=== PATIENT | female | born 1975 | race Caucasian/White ===

== ENCOUNTER 2017-11-23 22:36 | Observation (INO) ==
[2017-11-23 23:02] LABS: Activated Partial Thrombo Time 23.7 seconds (23.6-34.0); INR 0.97 (0.9-1.1)
[2017-11-23 23:15] LABS: Albumin Level 2.7 gm/dL (3.4-5.0); Albumin/Globulin Ratio 0.8 (1.1-1.8); Anion Gap 12.7 mEq/L (5-15); Bilirubin,Total 0.2 mg/dL (0.2-1.0); Globulin 3.6 gm/dl (1.3-3.2); Potassium 3.7 mmoL/L (3.5-5.1); Thyroid Stimulating Hormone 2.76 uIU/ml (0.358-3.740); Total Protein,Serum 6.3 gm/dL (6.4-8.2)
[2017-11-23 23:17] LABS: Basophils # 0.1 K/mm3 (0-0.2); Basophils % 0.3 % (0.1-2.0); Eosinophils # 0.1 K/mm3 (0.0-0.4); Eosinophils % 0.7 % (0.1-12.0); Lymphocytes # 2.8 K/mm3 (0.7-4.5); Lymphocytes % 17.7 K/mm3 (10-50); Mean Corpuscular HGB Conc 30.4 g/dL (31.8-35.4); Mean Corpuscular Hemoglobin 25.1 pg (27.0-31.2); Mean Corpuscular Volume 82.7 fl (81-99); Mean Platelet Volume 8.4 fl (7.4-10.4); Monocytes # 0.5 K/mm3 (0.1-1.0); Monocytes % 3.3 % (1.7-9.3); Neutrophils # 12.2 K/mm3 (1.8-7.8); Platelet Count 401 K/mm3 (142-424); Red Blood Count 3.08 M/mm3 (4.20-5.40); Red Cell Distribution Width 14.8 % (11.5-17.5); White Blood Count 15.6 K/mm3 (4.8-10.8)
[2017-11-23 23:19] LABS: Hematocrit 25.5 % (37.0-47.0); Hemoglobin 7.7 g/dL (12.2-16.2)
[2017-11-23 23:20] LABS: Creatine Kinase 28 U/L (26-192)
--- NOTE | 2017-11-23 23:25 | Emergency Department Note ---
ED Disposition Clinical Impression: Vaginal bleeding Anemia Qualifiers: Anemia type: other cause Other causes of anemia: other cause, not classified Qualified Code(s): D64.89 - Other specified anemias Disposition: Admitted As Inpatient Condition on Discharge: Serious Time of Disposition: 23:40 - Critical Care Critical Care Time: Yes Attestation: On 11/23/17, the high probability of a clinically significant, sudden or life threatening deterioration of the following system(s) required my full and direct attention, intervention and personal management. The time I documented below is in addition to time spent performing reported procedures but includes the following listed in this critical care notation. Total Critical Care Time: 90 Vital system(s) involved:: Circulatory Failure My critical care processes included: Assessment & monitoring of V/S, Initial and Re-exams, Data Review/Interpretation, Coordinating Care, Medication Orders and management, Documentation Medical Decision Making - Medical Records Medical records reviewed: Yes: I reviewed the patient's medical records. - Mahendra Inquiry Pt receiving controlled substance: No Vital Signs: 11/23/17 22:37 11/24/17 00:37 11/24/17 00:42 Temperature 99.2 F 98.8 F Temperature Source Oral Oral Pulse Rate 96 H Pulse Rate [Right Radial] 127 H Respiratory Rate 18 14 Blood Pressure 109/63 Blood Pressure [Right Arm] 112/59 Blood Pressure Mean [Right Arm] 76 Blood Pressure Source Automatic Cuff Blood Pressure Source [Right Arm] Automatic Cuff Blood Pressure Position Sitting Blood Pressure Position [Right Arm] Sitting 02 Sat by Pulse Oximetry 98 Oxygen Delivery Method Room Air Room Air Room Air - Lab Data Lab results reviewed: Yes: I reviewed the patient's lab results. Lab Results 11/23/17 22:45: PT 10.0, INR 0.97, APTT 23.7 11/23/17 22:45: Sodium 140, Potassium 3.7, Chloride 107, Carbon Dioxide 24, Anion Gap 12.7, BUN 11, Creatinine 0.93, Estimated Creat Clear -108 L, Estimated GFR 66, Est GFR ( Amer) 80, Glucose 255 H, Calcium 8.0 L, Total Bilirubin 0.2, AST 4 L, ALT 19, Alkaline Phosphatase 81, Total Protein 6.3 L, Albumin 2.7 L, Globulin 3.6 H, Albumin/Globulin Ratio 0.8 L, Amylase 26, Lipase 76, TSH 2.76 11/23/17 22:45: Hemoglobin A1c 6.2 11/23/17 22:45: Serum HCG, Qual Negative 11/23/17 22:45: Total Creatine Kinase 28, CK-MB (CK-2) < 0.5, CK-MB (CK-2) Rel Index 1.8, Troponin I < 0.02 11/23/17 22:45: WBC 15.6 H, RBC 3.08 L, Hgb 7.7 L*, Hct 25.5 L, MCV 82.7, MCH 25.1 L, MCHC 30.4 L, RDW 14.8, Plt Count 401, MPV 8.4, Neut % (Auto) 78.0, Lymph % (Auto) 17.7, [place] % (Auto) 3.3, Eos % (Auto) 0.7, Baso % (Auto) 0.3, Neut # (Auto) 12.2 H, Lymph # (Auto) 2.8, [place] # (Auto) 0.5, Eos # (Auto) 0.1, Baso # (Auto) 0.1, Total Counted 100, Neutrophils % (Manual) 82 H, Band Neutrophils % 5.0, Lymphocytes % (Manual) 12, Monocytes % (Manual) 1 L, Platelet Estimate Slight increase, Hypochromasia 3+, Microcytosis 2+, Rouleaux 3 + 11/23/17 23:40: Blood Type O Positive, Antibody Screen Negative, Crossmatch (AHG ) See Detail 11/24/17 00:28: Blood Type Confirm O Positive Result diagrams: 11/23/17 22:45 11/23/17 22:45 Orders (Tests/Meds): ED MEDICATIONS Generic Name Dose Route Start Last Admin Trade Name Freq PRN Reason Stop Dose Admin Estrogens Conjugated 25 mg 11/24/17 05:45 Premarin 25mg Vial IV 12/23/17 23:44 Q6H ADRIENNE Lactated Ringer's 1,000 mls @ 125 mls/hr 11/24/17 00:30 11/24/17 02:00 Lactated Ringer's 1000 Ml Bag IV 12/24/17 00:29 125 mls/hr .Q8H ADRIENNE Administration Metronidazole 100 mls @ 100 mls/hr 11/24/17 01:00 11/24/17 00:54 Flagyl 500mg/100ml Ivpb IV 12/08/17 00:59 100 mls/hr Q8H ADRIENNE Administration Protocol Clindamycin Phosphate 600 mg/ 104 mls @ 104 mls/hr 11/24/17 01:00 11/24/17 01 :59 Sodium Chloride IV 12/08/17 00:59 104 mls/hr Q6H ADRIENNE Administration Protocol Iopamidol 75 ml 11/24/17 00:09 11/24/17 00:10 [id number]; 75ml Vial IV 11/24/17 00:10 75 ml ONCE ONE Administration Sodium Chloride 10 ml 11/24/17 00:09 11/24/17 00:10 Rad-Saline Flush 10ml Syringe IV 11/24/17 00:10 10 ml ONCE ONE Administration Sodium Chloride 10 ml 11/24/17 00:30 Saline Flush 10ml Syringe IV 12/24/17 00:29 NEEDED PRN Maintain IV Site Discontinued Medications Generic Name Dose Route Start Last Admin Trade Name Freq PRN Reason Stop Dose Admin Estrogens Conjugated 25 mg 11/23/17 23:45 11/24/17 00:08 Premarin 25mg Vial IV 12/23/17 23:44 25 mg Q6H ADRIENNE Administration Sodium Chloride 1,000 mls @ 999 mls/hr 11/23/17 23:00 11/23/17 22:45 Sod Chlor 0.9% 1000ml Bag IV 11/24/17 00:00 999 mls/hr .Q1H1M ADRIENNE Administration Sodium Chloride 1,000 mls @ 999 mls/hr 11/23/17 23:00 11/23/17 23:22 Sod Chlor 0.9% 1000ml Bag IV 11/24/17 00:00 999 mls/hr .Q1H1M ADRIENNE Administration Sodium Chloride 1,000 mls @ 999 mls/hr 11/23/17 23:00 11/23/17 23:21 Sod Chlor 0.9% 1000ml Bag IV 11/24/17 00:00 999 mls/hr .Q1H1M ADRIENNE Administration Sodium Chloride 250 mls @ 25 mls/hr 11/23/17 23:30 11/24/17 00:08 Sod Chlor 0.9% 250ml Bag IV 11/24/17 23:29 25 mls/hr .Q10H ADRIENNE Administration Ondansetron HCl 4 mg 11/23/17 22:50 11/23/17 22:51 Zofran 4mg/2ml Vial IV 11/23/17 22:51 4 mg ONCE ONE Administration ORDERS Category Date Time Status Transfuse RBC's [Red Blood Cells] Stat BBK 11/23/17 23:40 Results Type and Screen Stat BBK 11/23/17 23:[address] abdomen pelvis w con Stat Cat Scan 11/23/17 22:48 Taken HH [Hemoglobin and Hematocrit] Timed Lab 11/24/17 08:00 Ordered EKG Request [ECG Request by /Nse] Stat Y 11/23/17 22:49 Ordered - CT Data CT Scan: Abdomen, Pelvis Time Received: 00:[address] Reviewed: Yes: I have viewed the radiologist's interpretation Findings Narrative: Possible air within the uterine fundus, consistent with possible endometritis. - Physician Consults Physician Consulted: dr Hall Time: 23:40 Reason -: Admission, Pt condition, Obstetrical Eval/Care Comment/Response: Dr. Hall advise of patient's presentation, findings, vital signs, as well as the CT scan findings, suggestive of possible endometritis. He would like to proceed with estradiol 25 mg IV every 6 hours, IV Flagyl, IV Levaquin, ultrasound transvaginal in the morning. He suspects that patient could possibly have a gynecological malignancy and if menometrorrhagia not controlled she may require hysterectomy. Plan is to transfuse HER-2 units of PRBCs, and hold 2 additional units for further transfusions later on this morning. - Reevaluation(s) Time: 23:45 Reevaluation #1: Upon evaluation patient appears in continuous distress, however improving from time of arrival, no heart rate is only 109, and patient is significantly less diaphoretic. She remains pale. Advise patient of results obtained, plan to transfuse her with 2 units of blood and admit her for further studies. Female Urogenital HPI - General Chief complaint: Vaginal Bleeding Stated complaint: vaginal bleeding Time Seen by Provider: 11/23/17 22:47 Mode of Arrival: EMS Source of Information: Patient Limitations: No Limitations Description of Symptoms (Recalled from ER Triage Doc. by RN): no insurance, no doctor, has not seen a doctor since DR Campos , has had episodic vaginal bleeds, bleeding for 3 days this episode - History of Present Illness HPI Narrative: Patient is a 42-year-old morbidly obese lady brought emergency room by ambulance with vaginal bleeding for the past 3 days, worse over the past 6. Patient stated that over the past 12 while she is used to packs of maxipads (20 maxipads/pack). She has not seen a physician in a long time, sees Dr. Campos . Her periods are typically irregular. She had an tubal ligation 19 years ago, and a few years later she developed a tubal . Patient stated that she has been passing large blood clots, that she has smear her whole carpet, in her room at home, and she also ran out of maxipads at home. She arrives in distress, pale and diaphoretic. Her random blood sugar by finger test was more than 200. Denies any history of diabetes. MD Complaint: vaginal bleeding Onset (ago): day(s) (3) Radiation: non-radiating Severity: severe Severity scale (1-10): 10 Quality: cramping Duration: intermittent Relieving factors: none Exacerbating factors: movement Vaginal discharge: blood Sexual activity: yes : no - Related Data Home Medications Medication Instructions Recorded Confirmed No Known Home Medications 11/23/17 11/23/17 Allergies Allergy/AdvReac Type Severity Reaction Status Date / Time Penicillins [PENICILLINS] Allergy Unknown Verified 11/23/17 22:52 [facility] History I have reviewed the patient's past medical history: Yes Medical History: Denies:: Cancer, Diabetes Mellitus Type 1, Diabetes Mellitus Type 2, MRSA Amputation: No Fractures: No - Social History Alcohol Intake: never Substance Use Type: marijuana - Psychiatric History Expresses thoughts of harming self/others: None Suicide Plan Description: No Plan ROS Obtained: Yes All systems reviewed & no additional complaints, Yes Systems reviewed as appropriate & no additional complaints - Genitourinary Female Genitourinary: Reports system reviewed and no additional complaints, except as docu, Reports as per HPI, Reports abnormal vaginal bleeding Physical Exam - General General appearance: alert, in distress (moderate) - Head Head exam: atraumatic, normocephalic, normal inspection - Neck Neck exam: Present: normal inspection, full ROM, trachea midline. Absent: meningismus, lymphadenopathy - Chest Chest inspection: Present: normal inspection, symmetric chest wall rise. Absent : tenderness - Respiratory Respiratory exam: Present: normal lung sounds bilaterally. Absent: respiratory distress - Cardiovascular Cardiovascular exam: Present: regular rate, tachycardia. Absent: JVD - Abdominal Exam Abdominal exam: Present: soft, tenderness (suprapubic), normal bowel sounds. Absent: distention, guarding - Extremities Exam Extremities exam: Present: normal inspection, full ROM, normal capillary refill. Absent: calf tenderness - Back Exam Back exam: Present: normal inspection. Absent: tenderness - Neurological Exam Neurological exam: Present: alert, oriented X3 - Psychiatric Psychiatric exam: Present: normal affect, normal mood - Skin Skin exam: Present: diaphoresis, pallor - Lymphatic Lymphatic Findings: no adenopathy
[2017-11-24 00:02] LABS: Lymphocytes % 12 % (10-50); Monocytes % 1 % (2-9); Neutrophils % 82 % (42-76); Rouleaux 3+; Total Cells Counted 100
[2017-11-24 00:03] LABS: Hypochromasia 3+
--- NOTE | 2017-11-24 08:31 | Pharmacy Consult Notes ---
[facility] Pharmacy VTE Monitoring - Patient Demographics Admission date: 11/23/17 Report Date: 11/24/17 Time: 08:30 Allergies/Adverse Reactions: Patient Allergies Penicillins [PENICILLINS] Allergy (Unknown, Verified 11/23/17 22:52) Height: 1.83 m Weight: 213.444 kg Patient Problems: Current Active Problems Vaginal bleeding (Acute) Anemia (Acute) - VTE Risk Labs: VTE Related Lab Results Hgb 7.7 g/dL (12.2-16.2) L* 11/23/17 22:45 Hct 25.5 % (37.0-47.0) L 11/23/17 22:45 Plt Count 401 K/mm3 (142-424) 11/23/17 22:45 PT 10.0 seconds (9.4-11.8) 11/23/17 22:45 INR 0.97 (0.9-1.1) 11/23/17 22:45 APTT 23.7 seconds (23.6-34.0) 11/23/17 22:45 BUN 11 mg/dL (7-18) 11/23/17 22:45 Creatinine 0.93 mg/dL (0.55-1.02) 11/23/17 22:45 Estimated Creat Clear -108 mL/min (0-300) L 11/23/17 22:45 VTE Score: 4 VTE Risk Level: Low Risk - Prophylaxis VTE Prophylaxis Ordered?: Yes Types of VTE Prophylaxis: TEDS Knee High Location of Applied Device: Bilateral Lower Extremeties - VTE Diagnosis Confirmed Treatment or plan recommended: Continue Current Treatment
[2017-11-24 09:00] LABS: Hemoglobin 6.7 g/dL (12.2-16.2)
--- NOTE | 2017-11-24 13:09 | Progress Note ---
[facility] Anesthesia Checklist - Patient Identification Patient Identification: Arm Band, Verbal (Name & ) - Structural Data Admitted From: Home Planned Operative Procedure/s: D&C Consent for Planned Operative Procedure(s) Verified: Yes Verified Documents: Surgical Consent, History and Physical - NPO Status Verified Time NPO: 00:00 - Additional verifications Patient : No Anesthesia Reactions: No - Airway Assessment C-Spine Mobility Assessed: Yes TMJ Mobility Assessed: Yes Dentition: Good Dentition - Neurological Assessment Level of Consciousness: Awake Hx Seizures: No Numbness or tingling in extremities: No - Anesthesia Plan Anesthesia Risk discussed: Yes Anesthesia Plan: Verified ASA Class: III Anesthesia Type: General [facility] Anesthesia HX Medical History: Reports:: Diabetes Mellitus Type 2 Denies:: Cancer, Diabetes Mellitus Type 1, MRSA Other Medical History: Reports: Anemia, Sinus Problems, Other (super morbid obesity) Laterality Cases: Bilateral: Tonsillectomy Other Surgeries: Yes: , Tubal Ligation Amputation: No Fractures: No *Family Hx:: Asthma, Cancer, Heart Attack, Hypertension, Stroke
--- NOTE | 2017-11-24 13:11 | History & Physical Report ---
*Admission Date: 11/23/17 (EExcessive vaginal bleeding) *Chief complaint: Dysfunctional uterine bleeding *History of present illness: This 42-year-old 4, para 3, ectopic 1 white female was admitted to the emergency room with excessive vaginal bleeding over the past 3 months, worsening in the previous 2 days. She became lightheaded and dizzy and came to the emergency room, where her hemoglobin was 7.7 g and she was bleeding very heavily. A test was negative. Her history includes 2 vaginal deliveries, followed by a section with a lateral tubal ligation at the same time (in 1998). Pathology report confirmed 2 separate fallopian tube segments. Nonetheless, in 2005 she presented with symptoms consistent with an ectopic , and underwent a laparoscopic left salpingo-oophorectomy and right salpingectomy. In recent years she states her periods have become irregular and heavier, but nothing like what happened in the last 24 hours. She was admitted and transfused 2 units of blood, and started on intravenous Premarin every 6 hours. Her bleeding slowed, but her posttransfusion hemoglobin had actually dropped to 6.[address] scan done in the emergency room showed an irregular uterus and air pockets within the uterine fundus. An ultrasound this morning confirmed this, and was accompanied by even heavier bleeding. She is now being transfused another 2 units of blood, and has been consented for a dilatation and suction evaluation. The patient states that she is in good health, but she is morbidly obese (weight greater than 400 pounds). She has been informed of the possibility of a uterine malignancy. [facility] History Medical History: Denies:: Cancer, Diabetes Mellitus Type 1, Diabetes Mellitus Type 2, MRSA Other Medical History: Reports: Anemia, Sinus Problems Laterality Cases: Bilateral: Tonsillectomy Other Surgeries: Yes: , Tubal Ligation Amputation: No Fractures: No - *Social History Educational Level: Completed High School Smoking Status: Former smoker Alcohol Intake: never Substance Use Type: marijuana Occupational Status: employed Housing: house Household Members: spouse - Psychiatric History Expresses thoughts of harming self/others: None Suicide Plan Description: No Plan *Family Hx:: Asthma, Cancer, Heart Attack, Hypertension, Stroke Review of Systems - Review of Systems Review of systems:: pertinent systems reviewed and negative unless documented below Meds Home Medications Medication Instructions Recorded Confirmed Type No Known Home Medications 11/23/17 11/23/17 History Allergies Allergy/AdvReac Type Severity Reaction Status Date / Time Penicillins [PENICILLINS] Allergy Unknown Verified 11/23/17 22:52 Exam Vital signs and Labs for Last 24 Hours: Temp Pulse Resp BP Pulse Ox 98.3 F 88 20 148/63 95 11/24/17 12:10 11/24/17 12:10 11/24/17 12:10 11/24/17 12:10 11/24/17 12:10 Laboratory Results - last 24 hr 11/23/17 22:45: PT 10.0, INR 0.97, APTT 23.7 11/23/17 22:45: Sodium 140, Potassium 3.7, Chloride 107, Carbon Dioxide 24, Anion Gap 12.7, BUN 11, Creatinine 0.93, Estimated Creat Clear -108 L, Estimated GFR 66, Est GFR ( Amer) 80, Glucose 255 H, Calcium 8.0 L, Total Bilirubin 0.2, AST 4 L, ALT 19, Alkaline Phosphatase 81, Total Protein 6.3 L, Albumin 2.7 L, Globulin 3.6 H, Albumin/Globulin Ratio 0.8 L, Amylase 26, Lipase 76, TSH 2.76 11/23/17 22:45: Hemoglobin A1c 6.2 11/23/17 22:45: Serum HCG, Qual Negative 11/23/17 22:45: Total Creatine Kinase 28, CK-MB (CK-2) < 0.5, CK-MB (CK-2) Rel Index 1.8, Troponin I < 0.02 11/23/17 22:45: WBC 15.6 H, RBC 3.08 L, Hgb 7.7 L*, Hct 25.5 L, MCV 82.7, MCH 25.1 L, MCHC 30.4 L, RDW 14.8, Plt Count 401, MPV 8.4, Neut % (Auto) 78.0, Lymph % (Auto) 17.7, [place] % (Auto) 3.3, Eos % (Auto) 0.7, Baso % (Auto) 0.3, Neut # (Auto) 12.2 H, Lymph # (Auto) 2.8, [place] # (Auto) 0.5, Eos # (Auto) 0.1, Baso # (Auto) 0.1, Total Counted 100, Neutrophils % (Manual) 82 H, Band Neutrophils % 5.0, Lymphocytes % (Manual) 12, Monocytes % (Manual) 1 L, Platelet Estimate Slight increase, Hypochromasia 3+, Microcytosis 2+, Rouleaux 3 + 11/23/17 23:40: Blood Type O Positive, Antibody Screen Negative, Crossmatch (AHG ) See Detail 11/24/17 00:28: Blood Type Confirm O Positive 11/24/17 06:08: POC Glucose 119 H 11/24/17 08:40: Hgb 6.7 L*, Hct 22.0 L* I & O for Last 24 hours: Intake & Output 11/22/17 11/23/17 11/24/17 11/25/17 11:59 11:59 11:59 11:59 Intake Total 663 / 663 Output Total 325 / 325 Balance 338 / 338 Weight 470 lb 9 oz H&P: Result - Labs Labs: Short CBC 11/23/17 11/24/17 Range/Units 22:45 08:40 WBC 15.6 H (4.8-10.8) K/mm3 Hgb 7.7 L* 6.7 L* (12.2-16.2) g/dL Hct 25.5 L 22.0 L* (37.0-47.0) % Plt Count 401 (142-424) K/mm3 BMP 11/23/17 22:45 Sodium 140 Potassium 3.7 Chloride 107 Carbon Dioxide 24 BUN 11 Creatinine 0.93 Glucose 255 H Calcium 8.0 L Cardiac Enzymes 11/23/17 Range/Units 22:45 Total Creatine Kinase 28 (26-192) U/L CK-MB (CK-2) < 0.5 (0.0-3.6) ng/ml Troponin I < 0.02 (0.00-0.06) ng/ml Liver Function 11/23/17 Range/Units 22:45 Total Bilirubin 0.2 (0.2-1.0) mg/dL AST 4 L (15-37) U/L ALT 19 (12-78) U/L Alkaline Phosphatase 81 (46-116) U/L Albumin 2.7 L (3.4-5.0) gm/dL Assessment and Plan - Assessment and plan all Dx Assessment and Plan for all problems:: See history of present illness. The plan is for dilatation and evacuation for diagnostic and therapeutic purposes after transfusion.
--- NOTE | 2017-11-24 15:06 | Operative Note ---
Date of procedure: 11/24/17 Pre-op Diagnosis:: 1. Dysfunctional uterine bleeding/menorrhagia. 2. Rule out endometrial carcinoma. Post-op Diagnosis:: 1. Dysfunctional uterine bleeding/menorrhagia. 2. Rule out endometrial carcinoma. 3. Rule out cervical carcinoma. Procedure performed:: 1. Dilatation and suction evacuation. 2. Cervical biopsy. Surgeon:: Garth Stout MD BOTTOM HOOP DRIVER:: Other (RITU Hargrove) Anesthesia: GETA Estimated blood loss (mL): 300 Operative findings:: 1. Necrotic ectocervix. 2. Endometrial hyperplasia/question carcinoma. Operative note:: After the patient was prepped and draped in usual fashion and general anesthesia was administered, examination under anesthesia revealed a thickened firm cervix, with irregular uterus. The adnexa were not palpable due to the patient's body habitus. A weighted speculum was placed within the posterior fourchette of vagina, and the anterior lip of the cervix was grasped with a single-tooth tenaculum. The cervix was stenotic, but was carefully sounded. The sound would only advance 6 cm before meeting obstruction. A small sharp curette was introduced into the endometrial cavity, with retrieval of a small amount of necrotic tissue. A #7 curved suction tip was then introduced, with the retrieval of a large amount of necrotic tissue. Intravenous Pitocin was begun in an effort to contract the uterus and decrease bleeding. A small punch biopsy was taken and a necrotic area of the ectocervix and submitted separately to pathology. The estimated blood loss was 300 cc. A vaginal pack was placed in the vagina. The patient has received a total of 4 units of packed cells, and a hemoglobin/hematocrit will be obtained in PACU. Condition: stable Disposition: floor Specimens:: 1. Uterine curettings. 2. Cervical biopsy. Complications:: None
--- NOTE | 2017-11-24 15:16 | Progress Note ---
[facility] Anesthesia Record Part I Intake, IV Amount: 500 Estimated blood loss (mL): 300 Urine output (mL): 0 Blood Products used (#): none Blood Pressure: 153/92 SaO2: 96 Pulse Rate: 98 Respiratory Rate: 20 Temperature: 97.8 F Patient is:: Drowsy, Stable Stable to PACU at:: 15:10
--- NOTE | 2017-11-24 15:16 | Progress Note ---
Internal Medicine - PN: Subj *Date: 11/24/17 *Time: 15:12 Exam Vital signs and Labs for Last 24 Hours: Temp Pulse Resp BP Pulse Ox 98.3 F 88 20 148/63 95 11/24/17 12:10 11/24/17 12:10 11/24/17 12:10 11/24/17 12:10 11/24/17 12:10 Laboratory Results - last 24 hr 11/23/17 22:45: PT 10.0, INR 0.97, APTT 23.7 11/23/17 22:45: Sodium 140, Potassium 3.7, Chloride 107, Carbon Dioxide 24, Anion Gap 12.7, BUN 11, Creatinine 0.93, Estimated Creat Clear -108 L, Estimated GFR 66, Est GFR ( Amer) 80, Glucose 255 H, Calcium 8.0 L, Total Bilirubin 0.2, AST 4 L, ALT 19, Alkaline Phosphatase 81, Total Protein 6.3 L, Albumin 2.7 L, Globulin 3.6 H, Albumin/Globulin Ratio 0.8 L, Amylase 26, Lipase 76, TSH 2.76 11/23/17 22:45: Hemoglobin A1c 6.2 11/23/17 22:45: Serum HCG, Qual Negative 11/23/17 22:45: Total Creatine Kinase 28, CK-MB (CK-2) < 0.5, CK-MB (CK-2) Rel Index 1.8, Troponin I < 0.02 11/23/17 22:45: WBC 15.6 H, RBC 3.08 L, Hgb 7.7 L*, Hct 25.5 L, MCV 82.7, MCH 25.1 L, MCHC 30.4 L, RDW 14.8, Plt Count 401, MPV 8.4, Neut % (Auto) 78.0, Lymph % (Auto) 17.7, [place] % (Auto) 3.3, Eos % (Auto) 0.7, Baso % (Auto) 0.3, Neut # (Auto) 12.2 H, Lymph # (Auto) 2.8, [place] # (Auto) 0.5, Eos # (Auto) 0.1, Baso # (Auto) 0.1, Total Counted 100, Neutrophils % (Manual) 82 H, Band Neutrophils % 5.0, Lymphocytes % (Manual) 12, Monocytes % (Manual) 1 L, Platelet Estimate Slight increase, Hypochromasia 3+, Microcytosis 2+, Rouleaux 3 + 11/23/17 23:40: Blood Type O Positive, Antibody Screen Negative, Crossmatch (G ) See Detail 11/24/17 00:28: Blood Type Confirm O Positive 11/24/17 06:08: POC Glucose 119 H 11/24/17 08:40: Hgb 6.7 L*, Hct 22.0 L* I & O for Last 24 hours: Intake & Output 11/21/17 11/22/17 11/23/17 11/24/17 23:59 23:59 23:59 23:59 Intake Total 1592 / 1592 Output Total 325 / 325 Balance 1267 / 1267 Weight 425 lb 470 lb 8.874 oz
--- NOTE | 2017-11-24 15:17 | Progress Note ---
[facility] Anesthesia Record Part II Discharge Time: 15:40 Destination: Medical Surgical Department PACU nurse assessment reviewed?: Yes Patient Condition:: Good Anesthesia Complications:: None
[2017-11-24 15:44] LABS: Basophils % 0.2 % (0.1-2.0); Eosinophils # 0.2 K/mm3 (0.0-0.4); Eosinophils % 1.6 % (0.1-12.0); Hematocrit 24.1 % (37.0-47.0); Lymphocytes # 2.4 K/mm3 (0.7-4.5); Mean Corpuscular HGB Conc 31.6 g/dL (31.8-35.4); Mean Corpuscular Hemoglobin 26.1 pg (27.0-31.2); Mean Corpuscular Volume 82.6 fl (81-99); Monocytes # 0.7 K/mm3 (0.1-1.0); Monocytes % 4.7 % (1.7-9.3); Neutrophils # 10.9 K/mm3 (1.8-7.8); Neutrophils % 76.5 % (37.0-80.0); Platelet Count 314 K/mm3 (142-424); Red Blood Count 2.91 M/mm3 (4.20-5.40); Red Cell Distribution Width 15.6 % (11.5-17.5); White Blood Count 14.2 K/mm3 (4.8-10.8)
[2017-11-24 15:48] LABS: Hemoglobin 7.6 g/dL (12.2-16.2)
--- NOTE | 2017-11-25 06:51 | Progress Note ---
Internal Medicine - PN: Subj *Date: 11/25/17 *Time: 06:50 (This is postop day #1. The patient is afebrile. Vital signs are stable. Her vaginal pack is out, and her bleeding has decreased considerably. Awaiting results of this morning's blood work. Impression: Stable.) Exam Vital signs and Labs for Last 24 Hours: Temp Pulse Resp BP Pulse Ox 98.4 F 81 20 141/67 95 11/25/17 04:00 11/25/17 04:00 11/25/17 04:00 11/25/17 04:00 11/25/17 04:00 Laboratory Results - last 24 hr 11/23/17 23:40: Blood Type O Positive, Antibody Screen Negative, Crossmatch (AHG ) See Detail 11/24/17 08:40: Hgb 6.7 L*, Hct 22.0 L* 11/24/17 15:35: WBC 14.2 H, RBC 2.91 L, Hgb 7.6 L*, Hct 24.1 L, MCV 82.6, MCH 26.1 L, MCHC 31.6 L, RDW 15.6, Plt Count 314, MPV 8.0, Neut % (Auto) 76.5, Lymph % (Auto) 17.0, [place] % (Auto) 4.7, Eos % (Auto) 1.6, Baso % (Auto) 0.2, Neut # (Auto) 10.9 H, Lymph # (Auto) 2.4, [place] # (Auto) 0.7, Eos # (Auto) 0.2, Baso # (Auto) 0.0 I & O for Last 24 hours: Intake & Output 11/22/17 11/23/17 11/24/17 11/25/17 11:59 11:59 11:59 11:59 Intake Total 763 / 763 1429 / 1429 Output Total 325 / 325 750 / 750 Balance 438 / 438 679 / 679 Weight 470 lb 9 oz 470 lb 8.874 oz
[2017-11-25 07:52] LABS: Hemoglobin 7.4 g/dL (12.2-16.2)
--- NOTE | 2017-11-25 08:36 | Progress Note ---
Internal Medicine - PN: Subj *Date: 11/25/17 *Time: 08:35 (Hemoglobin this morning is stable at 7.4 g. I discussed options with the patient. Discharged home on oral iron and I will make arrangements for her to be followed by [facility] .) Exam Vital signs and Labs for Last 24 Hours: Temp Pulse Resp BP Pulse Ox 97.7 F 82 18 108/54 96 11/25/17 08:00 11/25/17 08:00 11/25/17 08:00 11/25/17 08:00 11/25/17 08:00 Laboratory Results - last 24 hr 11/23/17 23:40: Blood Type O Positive, Antibody Screen Negative, Crossmatch (AHG ) See Detail 11/24/17 08:40: Hgb 6.7 L*, Hct 22.0 L* 11/24/17 15:35: WBC 14.2 H, RBC 2.91 L, Hgb 7.6 L*, Hct 24.1 L, MCV 82.6, MCH 26.1 L, MCHC 31.6 L, RDW 15.6, Plt Count 314, MPV 8.0, Neut % (Auto) 76.5, Lymph % (Auto) 17.0, [place] % (Auto) 4.7, Eos % (Auto) 1.6, Baso % (Auto) 0.2, Neut # (Auto) 10.9 H, Lymph # (Auto) 2.4, [place] # (Auto) 0.7, Eos # (Auto) 0.2, Baso # (Auto) 0.0 11/25/17 07:10: Hgb 7.4 L*, Hct 24.0 L I & O for Last 24 hours: Intake & Output 11/22/17 11/23/17 11/24/17 11/25/17 11:59 11:59 11:59 11:59 Intake Total 763 / 763 1789 / 1789 Output Total 325 / 325 750 / 750 Balance 438 / 438 1039 / 1039 Weight 470 lb 9 oz 470 lb 8.874 oz
--- NOTE | 2017-11-25 08:39 | Discharge Summary ---
General - General Admission date:: 11/24/17 Discharge date: 11/25/17 (This 42-year-old white female was admitted through the emergency room with extremely heavy bleeding and hemoglobin of 6.6 g. The test was negative. Her last Pap smear was of years ago, but she began having irregular periods a year or so ago and then they became extremely heavy in the last couple of months, leading up to the incident prior to admission. She was transfused a total of 4 units of blood. A CT and ultrasound showed an irregular uterus and air pockets at the fundus. Patient was treated with intravenous Premarin. After transfusion her hemoglobin was 7.6 g. She was then taken to the operating room, where she underwent a dilatation and curettage. Her cervix was noted to be necrotic, and a large amount of necrotic tissue was retrieved from the uterus. Her postop hemoglobin is stable at 7.4 g. Her vaginal pack has been removed, and her bleeding has significantly decreased. She is being discharged home on iron 3 times a day. Arrangements are going to be made for her to have a consultation with [facility] at . To follow-up with my office in 2 weeks.) HPI HPI: This 42-year-old 4, para 3, ectopic 1 white female was admitted to the emergency room with excessive vaginal bleeding over the past 3 months, worsening in the previous 2 days. She became lightheaded and dizzy and came to the emergency room, where her hemoglobin was 7.7 g and she was bleeding very heavily. A test was negative. Her history includes 2 vaginal deliveries, followed by a section with a lateral tubal ligation at the same time (in 1998). Pathology report confirmed 2 separate fallopian tube segments. Nonetheless, in 2005 she presented with symptoms consistent with an ectopic , and underwent a laparoscopic left salpingo-oophorectomy and right salpingectomy. In recent years she states her periods have become irregular and heavier, but nothing like what happened in the last 24 hours. She was admitted and transfused 2 units of blood, and started on intravenous Premarin every 6 hours. Her bleeding slowed, but her posttransfusion hemoglobin had actually dropped to 6.[address] scan done in the emergency room showed an irregular uterus and air pockets within the uterine fundus. An ultrasound this morning confirmed this, and was accompanied by even heavier bleeding. She is now being transfused another 2 units of blood, and has been consented for a dilatation and suction evaluation. The patient states that she is in good health, but she is morbidly obese (weight greater than 400 pounds). She has been informed of the possibility of a uterine malignancy. Objective Vital signs: Temp Pulse Resp BP Pulse Ox 97.7 F 82 18 108/54 96 11/25/17 08:00 11/25/17 08:00 11/25/17 08:00 11/25/17 08:00 11/25/17 08:00 Results Labs on day of discharge: Labs from last 24 hours 11/25/17 11/24/17 11/24/17 07:10 15:35 08:40 WBC 14.2 H RBC 2.91 L Hgb 7.4 L* 7.6 L* 6.7 L* Hct 24.0 L 24.1 L 22.0 L* MCV 82.6 MCH 26.1 L MCHC 31.6 L RDW 15.6 Plt Count 314 MPV 8.0 Neut % (Auto) 76.5 Lymph % (Auto) 17.0 [place] % (Auto) 4.7 Eos % (Auto) 1.6 Baso % (Auto) 0.2 Neut # (Auto) 10.9 H Lymph # (Auto) 2.4 [place] # (Auto) 0.7 Eos # (Auto) 0.2 Baso # (Auto) 0.0 Blood Type Antibody Screen Crossmatch ([facility]) 11/23/17 23:40 WBC RBC Hgb Hct MCV MCH MCHC RDW Plt Count MPV Neut % (Auto) Lymph % (Auto) [place] % (Auto) Eos % (Auto) Baso % (Auto) Neut # (Auto) Lymph # (Auto) [place] # (Auto) Eos # (Auto) Baso # (Auto) Blood Type O Positive Antibody Screen Negative Crossmatch ([facility]) See Detail Discharge Plan - Patient Discharge Instructions - Follow up Plan Home Medications: Home Medications Medication Instructions Recorded Confirmed Type No Known Home Medications 11/23/17 11/23/17 History Prescriptions/Medication Reconciliation: No Action No Known Home Medications
== END 2017-11-25 10:30 | disposition home or self-care (01) ==
LOC: 2ND 22:36 → ER 22:36 → 2ND 23:53 → INTOOBSV 11-24 00:45 → OBSVTOIN 11-24 00:45 → 2ND 11-24 00:55
PROVIDERS: ADMIT Nurse Practitioner Obstetrics & Gynecology; ATTEND Obstetrics & Gynecology

== ENCOUNTER → 2018-03-13 13:35 | Outpatient (CLI) | payer MEDICAID, SELFPAY ==
--- NOTE | 2018-03-13 | US_ITS ---
MM Dig mamm BI DX w/CAD, US breast LT complete INDICATION: Rest pain and tenderness ORDERING PHYSICIAN: Andreea Gama PATIENT AGE: 42 years COMPARISON: None TECHNIQUE: Standard images performed along with left-sided spot compression views and left breast ultrasound FINDINGS: Average fibroglandular tissue. Right breast: No malignant appearing mass or malignant appearing microcalcification. Left breast: There is a clip present in the subareolar region. At this area there is an asymmetric density just deep to the clip which measures 8 mm. A vague area of increased density is present along the inferior aspect of the left breast at 6:00. This corresponds to an area of skin discoloration. No malignant appearing mass or malignant appearing microcalcification is evident. Left breast ultrasound: At the 6:00 region there is some subcutaneous fluid noted. No malignant appearing mass or malignant appearing microcalcification. IMPRESSION: No convincing evidence of malignancy. Since no previous exams are available for comparison it is recommended that the patient return for six-month follow-up of left breast to confirm stability of the nodular density in the subareolar region and of the cutaneous area of increased density BI-RADS Category: 3 Probably Benign Finding Short Term Follow-up RECOMMENDED FOLLOW-UP: 6M - 6 MONTH FOLLOW-UP (A letter has been sent to the patient regarding results of the study.)
== END ==
PROVIDERS: PCP Internal Medicine Adolescent Medicine; Visit Provider Obstetrics & Gynecology Gynecologic Oncology
DX: R93.89 Abnormal findings on diagnostic imaging of other specified body structures (principal)
CPT/HCPCS: 76641; 77066

== ENCOUNTER → 2018-09-22 13:56 | Outpatient (CLI) | payer MEDICAID, SELFPAY ==
--- NOTE | 2018-09-22 14:03 | US_ITS ---
MM Dig mamm DX unilat LT CAD, US breast LT complete INDICATION: 6 month follow-up left breast ORDERING PHYSICIAN: Irma Barclay PATIENT AGE: 43 COMPARISON: 03/13/2018 TECHNIQUE: Standard images performed along with spot compression views and left breast ultrasound FINDINGS: There is average fibroglandular tissue. There remains an area of asymmetric density in the retroareolar region just posterior to the previously placed clip. This measures approximately 8 mm similar to the previous exam. Old films were requested for comparison however they have been purged and are unavailable. This nodule could have been biopsied previously. Those images are not available however. No other significant anomalies are evident. Left breast ultrasound: Previously there was subcutaneous fluid density noted at 6:00 which is no longer apparent. Second look images previously showed a complex subcutaneous nodule at 3:00 not demonstrated on today's exam. No suspicious nodules evident IMPRESSION: Probably benign findings. Persistent retroareolar nodular density which is unchanged and may have been biopsied previously. Suggest continued six-month mammographic and sonographic follow-up to confirm one-year stability. BI-RADS Category: 3 Probably Benign Finding Short Term Follow-up RECOMMENDED FOLLOW-UP: 6M - 6 MONTH FOLLOW-UP (A letter has been sent to the patient regarding results of the study.)
== END ==
PROVIDERS: Visit Provider Nurse Practitioner
DX: R92.8 Other abnormal and inconclusive findings on diagnostic imaging of breast (principal); N60.12 Diffuse cystic mastopathy of left breast
CPT/HCPCS: 76641; 77065

== ENCOUNTER → 2020-02-22 12:06 | Outpatient (CLI) | payer OTHER, SELFPAY ==
--- NOTE | 2020-02-22 12:12 | XR_ITS ---
PROCEDURE: XR CHEST PORTABLE CLINICAL HISTORY: COVID 19 COMPARISON: No exams were available for comparison FINDINGS: The cardiomediastinal silhouette and pulmonary vascularity are within normal limits. The lungs are clear without infiltrates, suspicious nodules, or pleural effusions. No acute bony abnormalities. IMPRESSION: No acute findings. Dictated by: Norm Rasmussen MD 02/22/2020 12:30 Norm Rasmussen MD in [place] 02/22/2020 12:30
== END ==
PROVIDERS: PCP Nurse Practitioner Family; Visit Provider Nurse Practitioner Family
DX: Z03.818 Encounter for observation for suspected exposure to other biological agents ruled out (principal)
CPT/HCPCS: 71045; U0003

== ENCOUNTER → 2020-03-22 10:17 | Outpatient (CLI) | payer OTHER, SELFPAY ==
[2020-03-23 17:20] LABS: Covid-19 Nasal PCR Sendout Lex Not Detected
== END ==
PROVIDERS: PCP Family Medicine; Visit Provider Nurse Practitioner Family
DX: Z03.818 Encounter for observation for suspected exposure to other biological agents ruled out (principal)
CPT/HCPCS: U0004

== ENCOUNTER 2020-10-29 13:24 | Emergency (ER) | payer OTHER, SELFPAY ==
[2020-10-29 13:25] VITALS: BP 148/90; PULSE 80; RESP 16; TEMP 36.6; O2SAT 98; BMI 66.9
[2020-10-29 13:36] VITALS: BP 170/96; PULSE 75; RESP 22; TEMP 36.6; O2SAT 98; BMI 66.9
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
[2020-10-29 14:17] VITALS: BP 165/91; PULSE 78; RESP 20; TEMP 36.8
== END 2020-10-29 14:24 | disposition home or self-care (01) ==
PROVIDERS: Emergency Provider Nurse Practitioner Family; PCP Family Medicine
DX: M54.41 Lumbago with sciatica, right side (principal); X50.0XXA Overexertion from strenuous movement or load, initial encounter; Y92.89 Other specified places as the place of occurrence of the external cause
CPT/HCPCS: 96372; 99202; G0463

== ENCOUNTER → 2021-07-04 09:15 | Outpatient (CLI) | payer OTHER, SELFPAY | PROVIDERS: PCP Family Medicine; Visit Provider Surgery | DX: Z01.812 Encounter for preprocedural laboratory examination (principal); U07.1 COVID-19 | CPT/HCPCS: C9803; U0003; U0005 ==

== ENCOUNTER 2021-08-10 07:53 | Day surgery (SDC) | payer OTHER, SELFPAY ==
[2021-07-02 11:10] VITALS: BMI 62.7
[2021-08-07 14:40] VITALS: BMI 62.7
[2021-08-10 08:08] VITALS: BP 139/79; PULSE 84; RESP 18; TEMP 36.2; O2SAT 95
[2021-08-10 08:19] VITALS: O2SAT 95
--- NOTE | 2021-08-10 08:33 | HMH.ANESCL ---
[facility] [place] Anesthesia Checklist - Patient Identification Patient Identification: Arm Band, Verbal (Name & ) - Structural Data Admitted From: Home Planned Operative Procedure/s: Colonoscopy Consent for Planned Operative Procedure(s) Verified: Yes Verified Documents: Surgical Consent - Additional verifications Anesthesia Reactions: No - Airway Assessment C-Spine Mobility Assessed: Yes TMJ Mobility Assessed: Yes Dentition: Good Dentition - Neurological Assessment Level of Consciousness: Awake, Alert, Appropriate - Anesthesia Plan Anesthesia Risk discussed: Yes ASA Class: III Anesthesia Type: MAC [facility] [place] History I have reviewed the patient's past medical history: Yes Medical History: Reports:: Cancer (uterine/lymph nodes) Denies:: Diabetes Mellitus Type 1, Diabetes Mellitus Type 2, Internal Pacemaker, MRSA, Seizures *Have you ever received a pneumonia vaccine?: No *Have you received a flu vaccine this season?: No Other Medical History: Reports: Anemia, Sinus Problems, Other Anesthesia experience/problems:: none Laterality Cases: Bilateral: Tonsillectomy Other Surgeries: Yes: , Tubal Ligation. No: Pacemaker Amputation: No Fractures: No - *Social History Last grade of school completed: 11th or 12th Smoking Status: Former smoker Alcohol Intake: never Substance Use Type: denies use *Occupational Status:: employed Housing: house Household Members: spouse *Travel in the last 8 weeks: None Family Hx:: Cancer, Heart Attack, Stroke
--- NOTE | 2021-08-10 09:09 | HMH.SCOPE ---
- Procedure: Date: 08/10/21 Patient Date of :: 1975 Procedure Performed:: Total colonoscopy to terminal ileum with polypectomy using snare and biopsy Indications:: Patient is a 46-year-old female. She has a history of uterine cancer with lymph node recurrence. She had some recent rectal bleeding characterized as visible blood when wiping. This has resolved. She was scheduled for colonoscopy. Performing Provider:: Coy Russo MD Referring Provider:: Ny Leal Sedation:: MAC sedation Procedure:: Patient was taken to endoscopy procedure room. She was positioned in lateral decubitus position. Adequate intravenous sedation was achieved with anesthesia titration propofol. Variable stiffness Olympus colonoscope was inserted via the anus. Was advanced to the cecum without difficulty. However, preparation was poor as there was liquid stool coating the lentz of the colon with some particulate stool. Ileocecal valve and appendiceal orifice were clearly identified. Thorough irrigation and suctioning was performed which resulted in fair visualization. Colonoscope was slowly withdrawn through the colon with careful surveillance as irrigation and suctioning was performed. She was found to have several diminutive polyps. She had a cecal polyp which was removed with cold biopsy forceps. There is an ascending colon polyp removed with biopsy forceps. At the hepatic flexure there is a tiny polyp removed with cold snare. In the proximal transverse colon there was a small polyp removed with snare. In the descending colon there was a small polyp removed with cold snare. Sigmoid colon there is a small polyp removed with cold snare. She did have some evidence of rectosigmoid proctocolitis which was minor. This may be secondary to bowel function or previous radiation. This was quite minimal biopsies were obtained. Retroflexion within the rectum revealed nonbleeding internal hemorrhoids. Colonoscope was withdrawn. Findings:: Poor colonic preparation Small polyps as noted above. Total of 7 polyps removed. Minor rectosigmoid proctocolitis, biopsied Nonbleeding internal hemorrhoids Recommendations:: Source of now resolved bleeding likely internal hemorrhoids. Follow-up on pathology. Likely repeat colonoscopy in 1 to 2 years pending pathology with aggressive multi day bowel preparation due to her poor prep. Complications:: None immediate Estimated blood obtained (mL): 2
[2021-08-10 09:11] VITALS: BP 132/88; PULSE 84; RESP 18; TEMP 36.9; O2SAT 94
[2021-08-10 09:21] VITALS: BP 142/84; PULSE 79; RESP 18; O2SAT 96
[2021-08-10 09:31] VITALS: BP 158/89; PULSE 74; RESP 18; O2SAT 95
[2021-08-10 09:41] VITALS: BP 176/96; PULSE 76; RESP 18; O2SAT 97
[2022-02-07 10:58] LABS: POC Glucose,Bedside 169 (70-110)
== END 2021-08-10 09:41 | disposition home or self-care (01) ==
LOC: OUTP 07:54
PROVIDERS: PCP Nurse Practitioner Family; Visit Provider Surgery
PROC: 0DJD8ZZ Inspection of Lower Intestinal Tract, Via Natural or Artificial Opening Endoscopic (ICD-10-PCS; CPT 45385; principal; 2021-08-10 08:30)
DX: K63.5 Polyp of colon (principal); K51.30 Ulcerative (chronic) rectosigmoiditis without complications; K64.0 First degree hemorrhoids; Z85.42 Personal history of malignant neoplasm of other parts of uterus; K62.5 Hemorrhage of anus and rectum; D64.9 Anemia, unspecified; E11.9 Type 2 diabetes mellitus without complications; Z79.84 Long term (current) use of oral hypoglycemic drugs; Z87.891 Personal history of nicotine dependence; Z80.9 Family history of malignant neoplasm, unspecified; Z82.3 Family history of stroke; Z88.0 Allergy status to penicillin
CPT/HCPCS: 45385; 45380; 82962

== ENCOUNTER → 2021-11-01 08:34 | Outpatient (CLI) | payer OTHER, SELFPAY ==
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
== END ==
PROVIDERS: PCP Nurse Practitioner Family; Visit Provider Nurse Practitioner Family
DX: Z13.820 Encounter for screening for osteoporosis (principal)
CPT/HCPCS: 77080

== ENCOUNTER 2021-12-01 16:39 | Emergency (ER) | payer OTHER, SELFPAY ==
[2021-12-01 16:40] VITALS: BP 163/96; PULSE 110; RESP 16; TEMP 36.9; O2SAT 97; BMI 57.6
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
--- NOTE | 2021-12-01 17:02 | PC.NURSE ---
PT GONE TO XRAY VIA W/C
[2021-12-01 17:30] VITALS: BP 153/86; PULSE 89; RESP 18; O2SAT 96
[2021-12-01 18:28] VITALS: BP 152/84; PULSE 89; RESP 20; TEMP 36.9; O2SAT 97
== END 2021-12-01 18:28 | disposition home or self-care (01) ==
PROVIDERS: Emergency Provider Emergency Medicine; PCP Nurse Practitioner Family
DX: S13.4XXA Sprain of ligaments of cervical spine, initial encounter (principal); S16.1XXA Strain of muscle, fascia and tendon at neck level, initial encounter; M25.512 Pain in left shoulder; M54.2 Cervicalgia; V43.52XA Car driver injured in collision with other type car in traffic accident, initial encounter; Y92.414 Local residential or business street as the place of occurrence of the external cause; Z85.3 Personal history of malignant neoplasm of breast; Z87.891 Personal history of nicotine dependence; D64.9 Anemia, unspecified
CPT/HCPCS: 71045; 72040; 73030; 99284

== ENCOUNTER 2024-07-06 10:27 | Outpatient (RCR) | payer MEDICARE, MEDICAID, SELFPAY | END 2024-07-06 23:59 | disposition home or self-care (01) | LOC: PT 10:27 | PROVIDERS: PCP Nurse Practitioner Family; Visit Provider Obstetrics & Gynecology Gynecologic Oncology | DX: G60.9 Hereditary and idiopathic neuropathy, unspecified (principal); C54.1 Malignant neoplasm of endometrium | CPT/HCPCS: 97163 ==